=== PATIENT | female | born 1960 | race Caucasian/White ===

== ENCOUNTER 2017-02-01 09:33 | Emergency (ER) | payer OTHER ==
[2017-02-01 09:51] VITALS: BP 149/90; TEMP 97.5; O2SAT 95
--- NOTE | 2017-02-01 10:00 | ED.PDOC ---
History of Present Illness - General Chief Complaint: General Stated Complaint: Fall - hit back of head Time Seen by Provider: 02/01/17 09:37 Source: patient, RN notes reviewed, Vital Signs reviewed Exam Limitations: no limitations - History of Present Illness Initial Comments: Patient was sitting down into a chair when it slipped or moved on the tile floor. On her way down to the floor she struck the R back of her head on the kitchen table. No LOC. + pain with slight ARGUELLO which has resolved. No bleeding. + lump. No neck pain. No other injuries. Timing/Duration: 1 hour Severity: mild Improving Factors: nothing Worsening Factors: nothing Associated Symptoms: denies symptoms Allergies/Adverse Reactions: Allergies Nitrofurantoin [From Macrodantin] Allergy (Verified 02/01/17 09:44) Nausea Home Medications: Ambulatory Orders NK [NK] 02/01/17 Review of Systems - Review of Systems Constitutional: States: no symptoms reported EENTM: States: see HPI Respiratory: States: no symptoms reported Cardiology: States: no symptoms reported Gastrointestinal/Abdominal: States: no symptoms reported. Denies: nausea, vomiting Musculoskeletal: States: no symptoms reported. Denies: back pain, neck pain Skin: States: lumps - R parietal area of her head Neurological: States: see HPI, headache. Denies: numbness, paresthesia, seizure , tingling, tremors, weakness All other Systems: No Change from Baseline Past Medical History (General) - Patient Medical History Hx Stroke: No Hx Congestive Heart Failure: No Hx Diabetes: No Hx MRSA: No - Vaccination History Hx Influenza Vaccination: No Hx Pneumococcal Vaccination: Yes - 2008 - Social History Hx Tobacco Use: Yes - Female History Patient is a Female of Child Bearing Age (10 -59 yrs old): No Family Medical History - Family History Mother Family History: No Known Living Status: Still Living Physical Exam - Physical Exam General Appearance: Alert, Comfortable, No apparent distress, Well Developed, Well Groomed, Well Hydrated, Well Nourished Eye Exam: bilateral normal Ears, Nose, Throat: hearing grossly normal, normal ENT inspection, normal pharynx Neck: non-tender, full range of motion, supple, normal inspection Respiratory: no respiratory distress, no accessory muscle use Extremity: normal range of motion, non-tender, normal inspection, no pedal edema Neurologic: salvager II-XII nml as tested, no motor/sensory deficits, alert, normal mood/affect, oriented x 3 Skin Exam: normal color, warm/dry, rash - Tender lump R parietal scalp Lymphatic: no adenopathy Progress - Progress Progress: 02/01/17 10:04 Discussed normal neuro exam, not taking blood thinners and thus there is no need at this time for CT scan but if new or worsening symptoms to return to ER. Patient agreeable with plan. Departure - Departure Clinical Impression: Closed head injury without loss of consciousness Qualifiers: Encounter type: initial encounter Qualified Code(s): S09.90XA - Unspecified injury of head, initial encounter Time of Disposition: 10:03 Disposition: Discharge to Home or Self Care Condition: Good Departure Forms: ED Discharge - Pt. Copy, Patient Portal Self Enrollment Instructions: DI for Closed Head Injury Diet: resume usual diet Activity: increase activity as tolerated Home Medications: Ambulatory Orders NK [NK] 02/01/17 Additional Instructions: If develop blurry vision, worsening headache, nausea/vomiting, balance issues, numbness, tingling or weakness return to ER for CT scan.
== END 2017-02-01 10:10 | disposition home or self-care (01) ==
LOC: ER 09:33
DX: S09.90XA Unspecified injury of head, initial encounter (principal); Z88.8 Allergy status to other drugs, medicaments and biological substances; W07.XXXA Fall from chair, initial encounter; Y92.9 Unspecified place or not applicable